=== PATIENT | male | born 1965 | race Native Hawaiian/Other Pacific Islander ===

== ENCOUNTER 2022-04-10 09:01 | Outpatient (CLI) | payer BC | END 2022-04-10 20:39 | disposition home or self-care (01) | LOC: US 09:01 | PROVIDERS: ATTEND Nurse Practitioner Family | DX: R10.12 Left upper quadrant pain (principal); R10.13 Epigastric pain ==

== ENCOUNTER 2022-04-24 09:28 | Outpatient (CLI) | payer BC | END 2022-04-24 20:42 | disposition home or self-care (01) | LOC: RAD 09:28 | PROVIDERS: ATTEND Nurse Practitioner Family | DX: M79.606 Pain in leg, unspecified (principal); R20.0 Anesthesia of skin; M54.59 Other low back pain ==